=== PATIENT | female | born 1995 | race Two or more races ===

== ENCOUNTER 2016-11-20 22:22 | Emergency (ER) | payer MEDICAID, OTHER ==
[~2016-11-20] VITALS: Ht 157.5 cm; Wt 46.3 kg
[2016-11-20 23:00] VITALS: BP 117/76
[2016-11-20] MEDS ORDERED: AZITHROMYCIN250 MG ORAL (23:21)
--- NOTE | 2016-11-20 23:22 | Emergency Room Report ---
History of Present Illness General Chief Complaint: Diarrhea Source: Patient Present Illness HPI This is a 21-year-old female with no significant past medical history. She had a weeks worth of coughing congestion. She was seen couple days ago and diagnosed with a left ear infection. She was prescribed Bactrim. Since then, she has some abdominal pains or diarrhea. No fever or chills. No blood. Pain is crampy in nature. Denies any other complaint. Allergies: Coded Allergies: No Known Allergies (Unverified , 11/20/16) Patient History Past Medical History: see triage record, old chart reviewed Past Surgical History: none Pertinent Family History: none Social History: Denies: smoking Last Menstrual Period: 10/27/16 Now: No Immunizations: other Reviewed Nursing Documentation: PMH: Agreed, PSxH: Agreed Nursing Documentation-PMH Past Medical History: No Stated History Review of Systems Eye: Denies: blurred vision, eye pain ENT: Denies: ear pain, nose congestion, throat swelling Respiratory: Denies: cough, shortness of breath Cardiovascular: Denies: chest pain, palpitations Gastrointestinal: Reports: diarrhea, nausea, vomiting, Denies: abdominal pain Musculoskeletal: Denies: back pain, joint pain Skin: Denies: rash Neurological: Denies: headache, numbness Endocrine: Denies: increased thirst, increased urine Hematologic/Lymphatic: Denies: easy bruising All Other Systems: negative except mentioned in HPI Physical Exam Vital Signs Date Time Temp Pulse Resp B/P Pulse Ox O2 Delivery O2 Flow Rate FiO2 11/20/16 22:47 99.1 77 16 117/76 100 Room Air vitals normal Sp02 EP Interpretation: reviewed, normal General Appearance: well appearing, no apparent distress, alert Head: normocephalic, atraumatic Eyes: bilateral eye EOMI, bilateral eye PERRL ENT: hearing grossly normal, normal pharynx, other - left TM still with erythema Neck: full range of motion, supple, no meningismus Respiratory: chest non-tender, lungs clear, normal breath sounds Cardiovascular #1: regular rate, rhythm, no murmur Gastrointestinal: normal bowel sounds, non tender, no mass, no organomegaly, no bruit, non-distended Musculoskeletal: back normal, gait/station normal, normal range of motion Psychiatric: mood/affect normal Skin: warm/dry Medical Decision Making Diagnostic Impression: Primary Impression: Diarrhea Qualified Codes: R19.7 - Diarrhea, unspecified Additional Impression: Left otitis media Qualified Codes: H66.92 - Otitis media, unspecified, left ear ER Course Patient with diarrhea. This may be antibiotic side effect or a viral illness. She looks well. Doubt C. difficile. No evidence of acute abdomen or obstruction. We'll discharge home. We'll change antibiotics. Last Vital Signs Date Time Temp Pulse Resp B/P Pulse Ox O2 Delivery O2 Flow Rate FiO2 11/20/16 22:47 99.1 77 16 117/76 100 Room Air Status: improved Disposition: HOME, SELF-CARE Condition: Stable Scripts Azithromycin* (ZITHROMAX*) 250 Mg Tablet 250 MG ORAL DAILY, #6 TAB 0 Refills Take two tablets by mouth today, then take one tablet by mouth daily for four days Prov: DARIUS HERNANDEZ M.D. 11/20/16 Patient Instructions: Diarrhea, Adult Additional Instructions: Stop your previous antibiotics. Increase fluid. Return if symptom worsen. Followup with your DrSubhash to 3 days and not better. DARIUS HERNANDEZ M.D. Nov 20, 2016 23:21
[2016-11-20 23:30] VITALS: BP 110/73
== END 2016-11-20 23:30 | disposition home or self-care (01) ==
LOC: EMR 23:06
DX: R19.7 Diarrhea, unspecified (principal); H66.92 Otitis media, unspecified, left ear; R11.2 Nausea with vomiting, unspecified
CPT/HCPCS: 99283

== ENCOUNTER 2018-08-14 10:35 | Emergency (ER) | payer MEDICAID ==
[~2018-08-14] VITALS: Ht 157.5 cm; Wt 44.5 kg
[~2018-08-14 10:35] MED LIST: AZITHROMYCIN250 MG ORAL
[2018-08-14 10:37] VITALS: BP 106/63
[2018-08-14] MEDS ORDERED: NKM (10:40)
--- NOTE | 2018-08-14 10:41 | NUR ---
ED Nurse Note: Pt came in due to sore throat and chills since yesterday. Denies coughing. Afebrile upon triage 98.1 F. Pt is AAO x4, ambulatory.
[2018-08-14] MEDS ORDERED: AMOXICILLIN500 MG ORAL (11:02)
[2018-08-14] MEDS ORDERED: IBUPROFEN600 MG ORAL (11:02)
[2018-08-14 11:05] VITALS: BP 112/66
--- NOTE | 2018-08-14 11:05 | NUR ---
ED Nurse Note: Pt seen, treated, medically cleared for discharge by Health Care Provider. Discharge instructions/ACI given and explained to pt and verbalized understanding of teachings. All medical devices such as ID band removed. Pt is AAO x4, ambulatory and left with all personal belongings.
--- NOTE | 2018-08-14 11:06 | Emergency Room Report ---
History of Present Illness General Chief Complaint: Sore Throat Source: Patient Present Illness HPI Patient presents with complaints of sore throat Ongoing for the past 2 days Also complains of body ache Bilateral ear pain pain with swallowing Questionable low-grade fever at home Denies any chest pain or shortness of breath denies any vomiting denies any rash denies any abdominal pain Denies any recent travel Allergies: Coded Allergies: No Known Allergies (Unverified , 11/20/16) Patient History Past Medical History: see triage record Pertinent Family History: none Last Menstrual Period: 07/25/18 Reviewed Nursing Documentation: PMH: Agreed; PSxH: Agreed Nursing Documentation-PM Past Medical History: No Stated History Review of Systems All Other Systems: negative except mentioned in HPI Physical Exam Vital Signs Date Time Temp Pulse Resp B/P (MAP) Pulse Ox O2 Delivery O2 Flow Rate FiO2 08/14/18 10:37 98.1 117 16 106/63 95 Room Air Sp02 EP Interpretation: reviewed, normal General Appearance: well appearing, no apparent distress Head: normocephalic, atraumatic Eyes: bilateral eye PERRL, bilateral eye EOMI ENT: hearing grossly normal, TMs + canals normal, uvula midline, pharyngeal erythema Neck: full range of motion, supple, no meningismus, no bony tend Respiratory: lungs clear, normal breath sounds, no rhonchi, no respiratory distress, no retraction, no accessory muscle use Cardiovascular #1: normal peripheral pulses, regular rate, rhythm, no edema, no gallop, no JVD, no murmur Gastrointestinal: normal bowel sounds, non tender, soft, no mass, no organomegaly, non-distended, no guarding, no hernia, no pulsatile mass, no rebound Genitourinary: no CVA tenderness Musculoskeletal: normal inspection Neurologic: oriented x3, responsive, apparel merchandiser III-XII nml as tested, motor strength/ tone normal, sensory intact Psychiatric: mood/affect normal Skin: normal color, no rash, warm/dry, palpation normal Lymphatic: normal inspection, no adenopathy Medical Decision Making Diagnostic Impression: Primary Impression: pharyngitis ER Course Patient's clinical history and exam is consistent with what appears to be pharyngitis given the erythema and appearance patient placed on antibiotics and will have initial conservative outpatient trial Last Vital Signs Date Time Temp Pulse Resp B/P (MAP) Pulse Ox O2 Delivery O2 Flow Rate FiO2 08/14/18 10:37 98.1 117 16 106/63 95 Room Air Status: unchanged Disposition: HOME, SELF-CARE Condition: Stable Scripts Ibuprofen* (MOTRIN*) 600 Mg Tablet 600 MG ORAL Q8H PRN for For Pain, #20 TAB 0 Refills Prov: Loki Castro DO 08/14/18 Amoxicillin* (AMOXIL*) 500 Mg Capsule 500 MG ORAL THREE TIMES A DAY, #21 CAP Prov: Loki Castro DO 08/14/18 Referrals: [facility],REFERRING (PCP) Patient Instructions: Pharyngitis, [id number] Additional Instructions: Patient is provided with the discharge instructions notified to follow up with primary doctor in the next 2-3 days otherwise return to the er with any worsening symptoms. Please note that this report is being documented using [employer] technology. This can lead to erroneous entry secondary to incorrect interpretation by the dictating instrument. Loki Casrto DO Aug 14, 2018 11:06
== END 2018-08-14 11:05 | disposition home or self-care (01) ==
LOC: EMR 10:58
DX: J02.9 Acute pharyngitis, unspecified (principal)
CPT/HCPCS: 99282